=== PATIENT | female | born 1975 | race African-American/Black ===

== ENCOUNTER 2017-08-14 17:13 | Emergency (ER) | payer SELFPAY ==
[2017-08-14 17:20] VITALS: BP 180/123; BMI 39.4
[2017-08-14] MEDS ORDERED: NS 1000 ML 1,000 ML ONE (17:33)
[2017-08-14] MEDS ORDERED: ZOFRAN INJ 4 MG VIAL ONE (17:33)
[2017-08-14] MEDS ORDERED: NS 1000 ML 1,000 ML IV ONE (17:54)
[2017-08-14] MEDS ORDERED: ZOFRAN INJ 4 MG VIAL IVP ONE (17:54)
--- NOTE | 2017-08-14 18:17 | DR.NAUSEAF ---
HPI - Time Seen Time seen: 18:10 - Primary Care Physician Primary Care Physician: FELICIANO - HPI Comment HPI Comment: PATIENT GETTING WORSE. - Complaints Chief Complaint Doctors Comments: HISTORY BELOW. Chief Complaint:: PT. STATES SHE HAS BEEN EXPERIENCING N/V & ABDOMINAL PAIN THAT BEGAN ON 08/04/17. PT. HAS BEEN TO THE [facility] X 2 SINCE ONSET AND STATES SHE IS NOT GETTING BETTER. PT. C/O N/V AND EPIGASTRIC PAIN. PT. HAS VOMITED 5 TIMES IN THE LAST 24 HOURS. LAST BM WAS TODAY. - Reviewed Nurses Notes Reviewed: Yes - Source History Provided: Patient, Family Member - Mode of Arrival Mode of Arrival: Ambulatory - Timing Onset of Chief Complaint: 08/04/17 - Context Onset: Spontaneous Recent: None : No History of: None - Quality Quality: Bilious - Associated Signs and Symptoms Abdominal Pain Quality: Cramping Abdominal Pain Location: Epigastric Symptoms: Abdominal Pain PMH - PMH Past Medical History: Yes Past Medical History: Hypertension Past Surgical History: Yes Surgical History: Hysterectomy, Other Past Surgical History Comment: GALLSTONES REMOVED - Family History History of Family Medical Conditions: Yes Family Medical History: Hypertension - Social History Does patient currently use any type of tobacco product: No Have you used tobacco products in the last 12 months: No Type of Tobacco Use: None Does any household member use tobacco: No Alcohol Use: None Do you use any recreational Drugs:: No Lives With: Family Lives Where: Home - infectious screening In the last 2 months have you had wt loss of >10#?: NO Have you had fever, night sweats or hemotysis?: No Have you traveled outside the country in the last 6 months?: No Isolation: Standard ROS - Review of Systems Constitutional: Fever, Weakness, Fatigue. negative: Chills Eyes: No Symptoms Reported. negative: Eye Pain, Discharge ENTM: Throat Pain. negative: Ear Pain, Nose Discharge, Nose Congestion Respiratoy: negative: Productive Cough, Non-Productive Cough, Short of Breath, Wheezing Cardiovascular: No Symptoms Reported. negative: Chest Pain Gastrointestinal/Abdominal: Abdominal Pain, Nausea, Vomiting Genitourinary: No Symptoms Reported. negative: Dysuria, Frequency, Hematuria Neurological: Weakness. negative: Headache, Dizziness Musculoskeletal: Muscle Pain Integumentary: No Symptoms Reported Hematologic/Lymphatic: No Symptoms Reported Endocrine: No Symptoms Reported All Other Systems: Reviewed and Negative PE - Vital Signs Vitals: Temperature 99.6 F Pulse Rate 106 Respiratory Rate 20 Blood Pressure 180/123 O2 Sat by Pulse Oximetry 95 - General Limitations: No Limitations General Appearance: Alert - Head Head Exam: Normal Inspection - Eyes Eye exam: Normal Appearance - ENT ENT Exam: Normal External Ear Exam - Neck Neck Exam: Normal Inspection - Chest Chest Inspection: Symmetric Chest Wall Rise - Respiratory Respiratory Exam: Normal Lung Sounds Bilat Respiratory Exam: Bilateral Clear to Auscultation - Cardiovascular Cardiovascular Exam: Regular Rate, Normal Rhythm, Normal Heart Sounds - Abdominal Exam Abdominal Exam: Normal Bowel Sounds, Soft, Tenderness Abdominal Tenderness: Epigastrium - Rectal Rectal Exam: Deferred - External Exam: Female: Deferred : Speculum Exam (Female): Deferred : Bimanual Exam (female): Deferred - Extremities Extremities Exam: Normal Inspection - Back Back Exam: Normal Inspection - Neurologic Neurological Exam: Alert, Oriented X3 - Psychiatric Psychiatric Exam: Normal Affect, Normal Mood - Skin Skin Exam: Normal Color MDM - Differential Diagnosis Differential Diagnosis: Considerations may Include:: Bowel Obstruction, Gastritis, Gastroenteritis, Pancreatitis, PUD, Urinary Tract Infection, Urolithiasis Course - Treatment Treatment: SEE ORDERS. - Education/Counseling Education/Counseling: Patient, Education Educated On: Diagnosis, Needs for Follow Up ROR - Labs Reviewed Laboratory Results Reviewed?: Yes Result Diagrams: 08/14/17 18:56 08/14/17 18:56 Laboratory: WBC 8.7 X10^3/uL (3.6-10.0) 08/14/17 18:56 RBC 6.09 X10^6/uL (3.5-5.4) H 08/14/17 18:56 Hgb 16.0 g/dL (12.0-16.0) 08/14/17 18:56 Hct 46.8 % (36.0-47.0) 08/14/17 18:56 MCV 76.9 fL (80.0-100.0) L 08/14/17 18:56 MCH 26.3 pg (27.0-34.0) L 08/14/17 18:56 MCHC 34.2 g/dL (33.0-35.0) 08/14/17 18:56 RDW 15.8 % (11.6-16.5) 08/14/17 18:56 Plt Count 291 X10^3/uL (150.0-450.0) 08/14/17 18:56 MPV 8.4 fL (7.4-11.0) 08/14/17 18:56 Neut % 59.4 % (42.0-75.0) 08/14/17 18:56 Lymph % 32.0 % (21.0-51.0) 08/14/17 18:56 [place] % 7.7 % (0.0-13.0) 08/14/17 18:56 Eos % 0.1 % (0.9-2.9) L 08/14/17 18:56 Baso % 0.8 % (0.2-1.0) 08/14/17 18:56 Neut # 5.2 x10^3/uL (2.2-4.8) H 08/14/17 18:56 Lymph # 2.8 X10^3/uL (1.3-2.9) 08/14/17 18:56 [place] # 0.7 x10^3/uL (0.3-0.8) 08/14/17 18:56 Eos # 0.0 x10^3/uL (0.0-0.2) 08/14/17 18:56 Baso # 0.1 X10^3/uL (0.0-0.1) 08/14/17 18:56 Absolute Nucleated RBC 0.1 /100WBC 08/14/17 18:56 Sodium 136 mmol/L (136-145) 08/14/17 18:56 Corrected Sodium 136 mmol/L (136-145) 08/14/17 18:56 Potassium 2.8 mmol/L (3.5-5.1) L* 08/14/17 18:56 Chloride 98 mmol/L (98-107) 08/14/17 18:56 Carbon Dioxide 27.2 mmol/L (21-32) 08/14/17 18:56 BUN 10 mg/dL (7-18) 08/14/17 18:56 Creatinine 1.11 mg/dL (0.55-1.02) H 08/14/17 18:56 Est GFR (MDRD) Af Amer > 60 (>60) 08/14/17 18:56 Est GFR (MDRD) Non-Af 57 (>60) L 08/14/17 18:56 Glucose 111 mg/dL (65-99) H 08/14/17 18:56 Calcium 9.9 mg/dL (8.5-10.1) 08/14/17 18:56 Corrected Calcium TNP 08/14/17 18:56 Total Bilirubin 0.70 mg/dL (0.2-1.0) 08/14/17 18:56 AST 22 Units/L (15-37) 08/14/17 18:56 ALT 39 Units/L (12-78) 08/14/17 18:56 Alkaline Phosphatase 81 Units/L (46-116) 08/14/17 18:56 Total Protein 9.9 g/dL (6.4-8.2) H 08/14/17 18:56 Albumin 4.1 g/dL (3.4-5.0) 08/14/17 18:56 Globulin 5.8 g/dL (2.5-4.5) H 08/14/17 18:56 Albumin/Globulin Ratio 0.7 Ratio (1.1-2.1) L 08/14/17 18:56 Amylase 100 Units/L (25-115) 08/14/17 18:56 Lipase 154 Units/L (73-393) 08/14/17 18:56 Specimen Type Clean catch urine 08/14/17 18:47 Urine Color Yellow (YELLOW) 08/14/17 18:47 Urine Appearance Clear (CLEAR) 08/14/17 18:47 Urine pH 5.0 (5.0 - 8.0) 08/14/17 18:47 Ur Specific [place] 1.010 (1.000-1.030) 08/14/17 18:47 Urine Protein 2+ (NEGATIVE) 08/14/17 18:47 Urine Glucose (UA) Negative (NEGATIVE) 08/14/17 18:47 Urine Ketones 2+ (NEGATIVE) 08/14/17 18:47 Urine Occult Blood Negative (NEGATIVE) 08/14/17 18:47 Urine Nitrite Negative (NEGATIVE) 08/14/17 18:47 Urine Bilirubin Negative (NEGATIVE) 08/14/17 18:47 Urine Urobilinogen Normal (NORMAL) 08/14/17 18:47 Ur Leukocyte Esterase 1+ (NEGATIVE) 08/14/17 18:47 Urine RBC 0-3 /HPF (NEGATIVE) 08/14/17 18:47 Urine WBC 0-3 /HPF (NEGATIVE) 08/14/17 18:47 Ur Squamous Epith Cells Few /HPF (NEGATIVE) 08/14/17 18:47 Urine Bacteria Trace /HPF (NEGATIVE) 08/14/17 18:47 Ur Culture Indicated? No/not indicated 08/14/17 18:47 H. pylori IgG Antibody Positive (NEGATIVE) A 08/14/17 18:56 - XRAY XRAY Interpreted by: Radiologist XRAY Findings: REPORT DISCUSS WITH PATIENT. - Diagnosis Discharge Problem: Diverticulitis, Helicobacter pylori ab+, Hypokalemia Abdominal pain Qualifiers: Abdominal location: epigastric Qualified Code(s): R10.13 - Epigastric pain Ovarian cyst Qualifiers: Laterality: bilateral Qualified Code(s): N83.201 - Unspecified ovarian cyst, right side; N83.202 - Unspecified ovarian cyst, left side; N83.202 - Unspecified ovarian cyst, left side - Discharge Plan Disposition: 01 HOME, SELF-CARE Condition: Stable Prescriptions: Ciprofloxacin HCl [CIPRO 500 MG TAB *] 500 mg PO Q12H #20 tab Metronidazole [Flagyl Tab 500 mg] 500 mg PO Q8H #21 tab Ondansetron HCl [Zofran Tab 4 mg] 4 mg PO Q8H PRN #12 tab PRN Reason: Nausea/Vomiting Promethazine HCl [PHENERGAN TAB 25 MG *] 25 mg PO Q6H PRN #20 tab PRN Reason: Nausea/Vomiting - Follow ups/Referrals Follow ups/Referrals: FELICIANO,None [Primary Care Provider] - 3 days ISELA AGUERO [STAFF PHYSICIAN] - 3 days - Instructions Instructions: Diverticulitis, [id number], Hypokalemia, Ovarian Cyst, Easy-to- Read, Helicobacter Pylori Antibodies Test Additional Instructions: RETURN TO ED IF WORSE. HAVE THE FOLLOW UP DOCTOR TREAT YOU FOR POSITIVE H PYLORI.
--- NOTE | 2017-08-14 19:13 | CT ---
CT abdomen and pelvis without contrast Indication: Abdominal pain, nausea and vomiting Technique: Helical CT images of the abdomen and pelvis were obtained without IV contrast. Reformatted images in the coronal and sagittal planes were also generated for review. Comparison: None Findings: Lung bases are clear. No aggressive osseous lesions are identified. The gallbladder surgically absent. Within the limits of a noncontrast exam, the liver, spleen, pancre as and adrenals are unremarkable. Both kidneys and visualized ureters are also normal without radiopa que stones or hydroureteronephrosis. A few noninflamed colonic diverticula are noted. The remaining G I tract, including the appendix is normal. Postsurgical changes within the right lower abdominal wall are noted. There is a small, 1.6 cm right lower quadrant cyst, which is likely ovarian in origin. Th e uterus is not identified and is likely absent. Urinary bladder is normal. No free air, free fluid o r lymphadenopathy is identified. Impression: No acute abnormality to explain patient's symptoms, within the limits of a noncontrast exam. Mild colonic diverticulosis and additional incidental findings as above. Reported By:
[2017-08-14 19:21] LABS: BASOPHILS # (AUTO) 0.1 X10^3/uL (0.0-0.1); BASOPHILS % (AUTO) 0.8 % (0.2-1.0); EOSINOPHILS % (AUTO) 0.1 % (0.9-2.9); HEMATOCRIT 46.8 % (36.0-47.0); LYMPHOCYTES # (AUTO) 2.8 X10^3/uL (1.3-2.9); MEAN CORPUSCULAR HEMOGLOBIN 26.3 pg (27.0-34.0); MEAN CORPUSCULAR HGB CONC 34.2 g/dL (33.0-35.0); MEAN CORPUSCULAR VOLUME 76.9 fL (80.0-100.0); MEAN PLATELET VOLUME 8.4 fL (7.4-11.0); MONOCYTES # (AUTO) 0.7 x10^3/uL (0.3-0.8); MONOCYTES % (AUTO) 7.7 % (0.0-13.0); NEUTROPHILS # (AUTO) 5.2 x10^3/uL (2.2-4.8); NEUTROPHILS % (AUTO) 59.4 % (42.0-75.0); PLATELET COUNT 291 X10^3/uL (150.0-450.0); RED BLOOD COUNT 6.09 X10^6/uL (3.5-5.4); RED CELL DISTRIBUTION WIDTH 15.8 % (11.6-16.5); WHITE BLOOD COUNT 8.7 X10^3/uL (3.6-10.0)
[2017-08-14 19:27] LABS: BILIRUBIN,URINE NEGATIVE (NEGATIVE); BLOOD/HEMOGLOBIN,URINE NEGATIVE (NEGATIVE); GLUCOSE, URINE NEGATIVE (NEGATIVE); KETONES,URINE 2+ (NEGATIVE); LEUKOCYTE ESTERASE ,URINE 1+ (NEGATIVE); NITRITES,URINE NEGATIVE (NEGATIVE); PROTEIN,URINE 2+ (NEGATIVE); UROBILINOGEN,URINE NORMAL (NORMAL)
[2017-08-14 20:00] LABS: APPEARANCE,URINE CLEAR (CLEAR); BACTERIA,URINE TRACE /HPF (NEGATIVE); COLOR,URINE YELLOW (YELLOW); RBC,URINE 0-3 /HPF (NEGATIVE); SQUAMOUS EPITHELIAL CELL,UR FEW /HPF (NEGATIVE)
[2017-08-14 20:10] LABS: ALANINE AMINOTRANSFERASE 39 Units/L (12-78); ALBUMIN 4.1 g/dL (3.4-5.0); ALKALINE PHOSPHATASE 81 Units/L (46-116); AMYLASE 100 Units/L (25-115); ASPARTATE AMINO TRANSFERASE 22 Units/L (15-37); BLOOD UREA NITROGEN 10 mg/dL (7-18); CALCIUM 9.9 mg/dL (8.5-10.1); CARBON DIOXIDE 27.2 mmol/L (21-32); CHLORIDE 98 mmol/L (98-107); COR NA(FOR HYPERGLY) 136 mmol/L (136-145); CREATININE 1.11 mg/dL (0.55-1.02); LIPASE 154 Units/L (73-393); SODIUM 136 mmol/L (136-145); TOTAL PROTEIN 9.9 g/dL (6.4-8.2); eGFR BLACK RACES > 60 (>60); eGFR NON BLACK RACES 57 (>60)
[2017-08-14] MEDS ORDERED: POTASSIUM CHLORIDE LIQ 20 MEQ UDC PO ONE (20:59)
[2017-08-14] MEDS ORDERED: POTASSIUM CHLORIDE LIQ 20 MEQ UDC ONE (21:02)
== END 2017-08-14 21:44 | disposition home or self-care (01) ==
LOC: ER 17:36
DX: K57.92 Diverticulitis of intestine, part unspecified, without perforation or abscess without bleeding (principal); N83.201 Unspecified ovarian cyst, right side; N83.202 Unspecified ovarian cyst, left side; R10.13 Epigastric pain; B96.81 Helicobacter pylori [H. pylori] as the cause of diseases classified elsewhere; E87.6 Hypokalemia
CPT/HCPCS: 36415; 74176; 80053; 81001; 82150; 83690; 85025; 86677; 96365; 96374; 99283; A4222; J2405